=== PATIENT | male | born 1980 | race Two or more races ===

== ENCOUNTER 2020-06-25 02:49 | Emergency (ER) | payer OTHER ==
[~2020-06-25] VITALS: Ht 182.9 cm; Wt 79.4 kg
--- NOTE | 2020-06-25 02:50 | NUR ---
PT BIBRA FROM HOME C/O RECTAL BLEEDING. PER RA, PT HAD SYNCOPAL EPISODE AND PERFORMED CPR PRIOR TO EMS ARRIVAL. PER RA, PT WAS HYPOTENSIVE ON SCENE AND REC'D 200ML NS EN ROUTE. PT ALSO C/O ABDOMINAL CRAMPING AND DIARRHEA. NOTED BRIGHT RED RECTAL BLEEDING. DENIES CP, SOB, NAUSEA, VOMITTING. PT AAOX4. RESPIRATIONS EVEN AND UNLABORED. NO ACUTE DISTRESS NOTED AT THIS TIME. PLACED ON MONITOR, WILL CONTINUE TO MONITOR
[2020-06-25] MEDS ORDERED: IV NS 0.9% 1,000 ML BAG IV ONE ×2 (03:00→05:30)
--- NOTE | 2020-06-25 03:00 | NUR ---
IV INITIATED RAC 18G. LABS DRAWN FROM SITE. POURER OFF AT BEDSIDE FOR COLLECTION. IV INTACT AND PATENT, PLACED ON SALINE LOCK
[2020-06-25 03:19] LABS: OCCULT BLOOD STOOL POSITIVE (NEGATIVE)
[2020-06-25 03:19] LABS: BASOPHILS # (AUTO) 0.1 /CMM (0.0-0.2); BASOPHILS % (AUTO) 0.6 % (0.0-2.0); EOSINOPHILS % (AUTO) 4.7 % (0.0-6.0); HEMATOCRIT 36 % (39-51); HEMOGLOBIN 11.8 g/dL (13.5-17.5); LYMPHOCYTES # (AUTO) 4.5 /CMM (0.8-4.8); LYMPHOCYTES % (AUTO) 39.1 % (20.0-44.0); MEAN CORPUSCULAR HGB CONC 33 g/dl (31.0-36.0); MEAN CORPUSCULAR VOLUME 86 fL (80-96); MONOCYTES # (AUTO) 0.8 /CMM (0.1-1.30); MONOCYTES % (AUTO) 6.8 % (2.0-12.0); NEUTROPHILS # (AUTO) 5.6 /CMM (1.8-8.9); NEUTROPHILS % (AUTO) 48.8 % (43.0-81.0); PLATELET COUNT (AUTO) 308 /CMM (150-450); RED BLOOD CELL COUNT(AUTO) 4.21 MIL/uL (4.5-6.0); WHITE BLOOD COUNT (AUTO) 11.6 K/uL (4.3-11.0)
--- NOTE | 2020-06-25 03:23 | NUR ---
COVID SWAB COLLECTED AND SENT TO LAB
[2020-06-25 03:27] LABS: CALCIUM, SERUM 7.8 mg/dL (8.5-10.1); CREATININE 1.2 mg/dL (0.6-1.3); POTASSIUM 3.2 mmol/L (3.5-5.1)
[2020-06-25 03:33] LABS: ALBUMIN 3.1 g/dL (3.4-5.0); BILIRUBIN,DIRECT 0.1 mg/dL (0.0-0.2); BILIRUBIN,TOTAL 0.6 mg/dL (0.2-1.0); TOTAL PROTEIN, SERUM 6.2 g/dL (6.4-8.2)
--- NOTE | 2020-06-25 03:36 | NUR ---
PT BROUGHT BY RADIOLOGY TO CT/XRAY
--- NOTE | 2020-06-25 05:20 | NUR ---
[facility] PAGED PER DR CRESPO.
--- NOTE | 2020-06-25 05:33 | NUR ---
DR. CRESPO SPEAKING WITH DR. FIELDS
[2020-06-25] MEDS ORDERED: METRONIDAZOLE 500MG/ NS 100ML 100 ML IV ONE (05:42)
[2020-06-25] MEDS ORDERED: PIPERACILLIN /TAZOBACTAM 3.375 G VIAL IV ONE (05:42)
[2020-06-25] MEDS ORDERED: PIPERACILLIN /TAZOBACTAM 3.375 G in IV D5W 50 ML IV SCH (06:00)
[2020-06-25] MEDS ORDERED: IV PREMIX D5 1/2NS + KCL 1,000 ML IV ONE (06:00)
[2020-06-25] MEDS ORDERED: ONDANSETRON HCL/PF 4 MG/2 ML VIAL IVP PRN (06:00)
[2020-06-25] MEDS ORDERED: PIPERACILLIN /TAZOBACTAM 3.375 G in IV D5W 50 ML IV ONE (06:00)
[2020-06-25] MEDS ORDERED: FLAGYL/NS RTU 500 MG/100 ML PIGGYBACK IV ONE (06:00)
[2020-06-25] MEDS ORDERED: MORPHINE SULFATE INJ 2 MG/ML DISP.SYRIN IV PRN (06:00)
[2020-06-25] MEDS ORDERED: IV NS 0.9% 1,000 ML IV ONE (06:00)
[2020-06-25 06:07] LABS: BILIRUBIN,URINE NEGATIVE (NEGATIVE); COLOR,URINE YELLOW (YELLOW); LEUKOCYTE ESTERASE ,URINE NEGATIVE (NEGATIVE); NITRITE, URINE NEGATIVE (NEGATIVE); PROTEIN,URINE NEGATIVE (NEGATIVE); UGLUCOSE NEGATIVE (NEGATIVE); UROBILINOGEN,URINE 0.2 EU/dL (0.2)
[2020-06-25] MEDS ORDERED: DICY10CA37 PO (07:30)
--- NOTE | 2020-06-25 07:46 | NUR ---
report given to Zoey WILSON for [facility]ady.
--- NOTE | 2020-06-25 08:12 | NUR ---
called ibrahima andrade.
--- NOTE | 2020-06-25 08:53 | NUR ---
called dr. alexandra, speaking with dr. muñoz.
--- NOTE | 2020-06-25 08:57 | NUR ---
CALLED [facility] [phone] PER ERVIN WILL GET MD TO CALL US MD BAUTISTA. 98/75 93 98% RR 18
[2020-06-25 09:12] LABS: BASOPHILS % (AUTO) 0.3 % (0.0-2.0); EOSINOPHILS % (AUTO) 0.5 % (0.0-6.0); HEMATOCRIT 31 % (39-51); HEMOGLOBIN 10.5 g/dL (13.5-17.5); LYMPHOCYTES # (AUTO) 0.8 /CMM (0.8-4.8); LYMPHOCYTES % (AUTO) 9.3 % (20.0-44.0); MEAN CORPUSCULAR HGB CONC 34 g/dl (31.0-36.0); MEAN CORPUSCULAR VOLUME 84 fL (80-96); MONOCYTES # (AUTO) 0.5 /CMM (0.1-1.30); MONOCYTES % (AUTO) 5.6 % (2.0-12.0); NEUTROPHILS # (AUTO) 7.3 /CMM (1.8-8.9); NEUTROPHILS % (AUTO) 84.3 % (43.0-81.0); PLATELET COUNT (AUTO) 226 /CMM (150-450); RED BLOOD CELL COUNT(AUTO) 3.72 MIL/uL (4.5-6.0); WHITE BLOOD COUNT (AUTO) 8.6 K/uL (4.3-11.0)
[2020-06-25 09:34] LABS: BASOPHILS # (AUTO) 0.1 /CMM (0.0-0.2); BASOPHILS % (AUTO) 0.8 % (0.0-2.0); EOSINOPHILS % (AUTO) 0.3 % (0.0-6.0); HEMATOCRIT 31 % (39-51); HEMOGLOBIN 10.3 g/dL (13.5-17.5); LYMPHOCYTES # (AUTO) 0.5 /CMM (0.8-4.8); LYMPHOCYTES % (AUTO) 7.1 % (20.0-44.0); MEAN CORPUSCULAR HGB CONC 33 g/dl (31.0-36.0); MEAN CORPUSCULAR VOLUME 86 fL (80-96); MONOCYTES # (AUTO) 0.3 /CMM (0.1-1.30); NEUTROPHILS # (AUTO) 5.8 /CMM (1.8-8.9); NEUTROPHILS % (AUTO) 87.8 % (43.0-81.0); PLATELET COUNT (AUTO) 219 /CMM (150-450); RED BLOOD CELL COUNT(AUTO) 3.62 MIL/uL (4.5-6.0); WHITE BLOOD COUNT (AUTO) 6.6 K/uL (4.3-11.0)
--- NOTE | 2020-06-25 10:07 | NUR ---
patient refused to stay here and [facility] accepted him for transfer per Dr Waite
--- NOTE | 2020-06-25 10:17 | NUR ---
CALLED [facility] PER MD REQUEST [phone] BAUTISTA.
--- NOTE | 2020-06-25 11:13 | NUR ---
CALLED [facility] [phone] ABOUT TRANSFER INFOR HILDA GOING TO [facility] IN [place] UNDER DR. GRANADO CALL [phone] ETA 1210 WITH [facility]. 106/63 80 99% 18RR
--- NOTE | 2020-06-25 11:23 | NUR ---
report given to Sabra vaughan ([facility]) Addendum: 06/25/20 at 1124 by AJD Sabra vaughan
[2020-06-25 12:54] VITALS: BP 106/61
--- NOTE | 2020-06-25 12:56 | NUR ---
patient picked up by private ambulance going to [facility] for rehab medicine in no distress.
== END 2020-06-25 12:56 | disposition short-term general hospital (02) ==
LOC: ER 02:52 → UNDOADMIN 06:14 → TELE1 06:14 → ER 12:56
DX: K35.80 Unspecified acute appendicitis (principal); K92.2 Gastrointestinal hemorrhage, unspecified; R55 Syncope and collapse; I95.9 Hypotension, unspecified; Z20.822 Contact with and (suspected) exposure to COVID-19; I48.91 Unspecified atrial fibrillation
CPT/HCPCS: 36415; 71045; 74176; 80048; 80076; 81003; 82272; 85025 ×3; 85730; 86850; 87040 ×2; 87081; 87426; 93005; 96361; 96365; 96367; 99291; C9803; J2543; J7030 ×2; J7060; J3490